=== PATIENT | male | born 1990 | race Caucasian/White ===

== ENCOUNTER 2018-07-04 21:33 | Emergency (ER) | payer BC, OTHER, SELFPAY ==
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
[2018-07-04] MEDS ORDERED: Ketorolac Tromethamine 60 MG/2 ML VIAL ONE (22:26)
[2018-07-04] MEDS ORDERED: Ondansetron ODT 4 MG TAB ONE (22:26)
== END 2018-07-04 22:46 | disposition home or self-care (01) ==
LOC: NAV ERS 21:33
DX: S06.0X9A Concussion with loss of consciousness of unspecified duration, initial encounter (principal); F17.220 Nicotine dependence, chewing tobacco, uncomplicated; W22.8XXA Striking against or struck by other objects, initial encounter
CPT/HCPCS: 70450; 72125; 96372; J1885; Q0162